=== PATIENT | female | born 1950 | race Hispanic/Latino ===

== ENCOUNTER → 2017-08-09 | Day surgery (SDC) | payer MEDICARE ==
[~2017-08-09] MED LIST: AMLODIPINE BESY10 MG PO; AZATHIOPRINE50 MG PO; FENTANYL CITRATE/PF 100MCG/2 ML INJ ONE; FERROUS SULFAT325 M1; LACTULOSE20 GM/30 M PO; LANTUS; LOSARTAN POTASS25 MG; MIDAZOLAM HCL 2 MG/2 ML VIAL ONE; MONTELUKAST SOD10 MG PO; MULTIVITAMIN; NOVOLOG100 UNITS1; OMEPRAZOLE40 MG; OR PHACO EYE KIT ONE; PREOP PHACO EYE KIT ONE; ULTRAM50 MG PO; URSODIOL300 MG; VITAMIN C500 MG; [UNRECOGNIZED DRUG - OTHER]
== END | disposition home or self-care (01) ==
LOC: OR 12:37
PROVIDERS: ATTEND Ophthalmology
DX: H25.12 Age-related nuclear cataract, left eye (principal); K74.60 Unspecified cirrhosis of liver; E11.9 Type 2 diabetes mellitus without complications; I10 Essential (primary) hypertension; K72.10 Chronic hepatic failure without coma; J45.909 Unspecified asthma, uncomplicated; E78.5 Hyperlipidemia, unspecified; D64.9 Anemia, unspecified; E05.90 Thyrotoxicosis, unspecified without thyrotoxic crisis or storm; K21.9 Gastro-esophageal reflux disease without esophagitis; F17.210 Nicotine dependence, cigarettes, uncomplicated; Z79.4 Long term (current) use of insulin
CPT/HCPCS: 36415; 66984; 82948; J2250; V2632

== ENCOUNTER → 2017-08-23 | Day surgery (SDC) | payer MEDICARE ==
[~2017-08-23] MED LIST changes: +DEXTROSE 5% 250ML 250 ML IV ONE; -FENTANYL CITRATE/PF 100MCG/2 ML INJ ONE; -OR PHACO EYE KIT ONE; -PREOP PHACO EYE KIT ONE
== END | disposition home or self-care (01) ==
LOC: OR 13:01
PROVIDERS: ATTEND Ophthalmology
DX: H25.11 Age-related nuclear cataract, right eye (principal); I10 Essential (primary) hypertension; E11.9 Type 2 diabetes mellitus without complications; Z79.4 Long term (current) use of insulin; K74.60 Unspecified cirrhosis of liver; K72.10 Chronic hepatic failure without coma; J45.909 Unspecified asthma, uncomplicated; K21.9 Gastro-esophageal reflux disease without esophagitis; F32.9 Major depressive disorder, single episode, unspecified; Z87.11 Personal history of peptic ulcer disease
CPT/HCPCS: 36415; 66984; 82948; J2250